=== PATIENT | female | born 1985 | race Caucasian/White ===

== ENCOUNTER 2016-02-23 07:51 | Day surgery (SDC) | payer OTHER ==
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
[~2016-02-23 07:51] MED LIST: CEFAZOLIN SODIUM 2 GRAM DUPLEX 50 ML IV PRN; IV START KIT ONE; LACTATED RINGERS 0 ML ONE
[2016-02-23] MEDS ORDERED: LACTATED RINGERS 1,000 ML ONE (07:58)
[2016-02-23] MEDS ORDERED: IV START KIT ONE (07:58)
[2016-02-23] MEDS ORDERED: ROPIVACAINE 0.5% 30 ML VIAL ONE (08:13)
[2016-02-23] MEDS ORDERED: NERVE BLOCK PROCEDURAL TRAY 1 EACH ONE (08:13)
[2016-02-23] MEDS ORDERED: MIDAZOLAM HCL 1 MG/ML 2ML VIAL ONE ×2 (08:40→09:18)
[2016-02-23] MEDS ORDERED: FENTANYL 100 MCG/2 ML VIAL ONE ×2 (08:40→09:18)
[2016-02-23] MEDS ORDERED: SPINAL PROCEDURAL TRAY 1 EACH ONE (08:59)
[2016-02-23] MEDS ORDERED: PROPOFOL 40 ML IV ONE (09:18)
[2016-02-23] MEDS ORDERED: LIDOCAINE 2% (PRES FREE) 5 ML VIAL ONE (10:05)
[2016-02-23] MEDS ORDERED: MORPHINE SULFATE 4 MG/ML SYRINGE IV PRN (10:49)
[2016-02-23] MEDS ORDERED: ONDANSETRON 4 MG/2ML 2 ML VIAL IV PRN ×2 (10:49→12:59)
[2016-02-23] MEDS ORDERED: PROMETHAZINE HCL 25 MG/ML VIAL IM PRN (10:49)
[2016-02-23] MEDS ORDERED: FENTANYL 100 MCG/2 ML VIAL IV PRN (10:49)
[2016-02-23] MEDS ORDERED: LACTATED RINGERS 1,000 ML IV SCH ×2 (11:00→12:59)
[2016-02-23] MEDS ORDERED: PROPOFOL 20 ML IV ONE (11:18)
[2016-02-23] MEDS ORDERED: DEXAMETHASONE SOD PHOS 4 MG/1 ML VIAL ONE (11:20)
[2016-02-23] MEDS ORDERED: MINERAL OIL 25 ML BOT ONE (11:28)
--- NOTE | 2016-02-23 12:10 | PCMBPN ---
Brief Post Op Note: Date of Procedure: 02/23/16 Start Time: 1030 Preoperative Diagnosis: 1. left knee ACL disruption 2. lateral mensicus tear Postoperative Diagnosis: 1. Same Procedure: left knee arthroscopy with lateral meniscus repair and ACL reconstruction using hamstring autograft Surgeon: Beck Mcgee MD Assist: Alysha Pierre Anesthesia: Jason Smith (spinal) Findings: as above Condition: stable to PACU Complications: none IV Fluids: 1000 mLs of LR Urine Output: 0 mLs Estimated Blood Loss: 25 mLs Tourniquet Time: 95 min at 250 mm Hg Specimens: none Implants: Mitek Rigidloop, 8x30 mm Biointrafix Drains: none Beck Mcgee MD
[2016-02-23] MEDS ORDERED: ON-Q PUMP/ROPIVACAINE 0.2% 400 ML in PREMIX BAG 1 EACH NB PRN (12:17)
[2016-02-23] MEDS ORDERED: ON-Q PUMP/ROPIVACAINE 0.2% 0 ML ONE (12:23)
--- NOTE | 2016-02-23 12:47 | RAD ---
Exam: Two-view left knee COMPARISON: 02/10/2016 INDICATION: Postop left knee ACL reconstruction. FINDINGS: AP and crosstable lateral views of the left knee were obtained. Postsurgical changes compatible with recent ACL reconstruction are appreciated. Alignment is normal. No unexpected fracture is identified. Joint spaces are maintained. IMPRESSION: Expected postoperative appearance following ACL reconstruction and the left knee.
[2016-02-23] MEDS ORDERED: DIPHENHYDRAMINE HCL 50 MG/1 ML VIAL IV PRN (12:59)
[2016-02-23] MEDS ORDERED: OXYCODONE/ACETAMINOPHEN 5/325 MG TABLET PO PRN (12:59)
[2016-02-23] MEDS ORDERED: HYDROMORPHONE HCL 1 MG/ML SYRINGE IV PRN (12:59)
[2016-02-23] MEDS ORDERED: ACETAMINOPHEN 325 MG TABLET PO PRN (12:59)
[2016-02-23] MEDS ORDERED: OXYCODONE/ACETAMINOPHEN 5/325 MG TABLET ONE (13:48)
--- NOTE | 2016-02-24 08:46 | OP ---
KIRAN GRIFFITH : 1985 V [id number] DATE OF PROCEDURE: February 23, 2016 PREOPERATIVE DIAGNOSIS: Left knee ACL disruption and lateral meniscus tear. POSTOPERATIVE DIAGNOSES: SAME PROCEDURE PERFORMED: LEFT KNEE ARTHROSCOPY WITH LATERAL MENISCUS REPAIR AND ACL RECONSTRUCTION USING HAMSTRING AUTOGRAFT SURGEON: Beck Mcgee M.D. PROFESSOR OF BUSINESS ADMINISTRATION: Alysha Pierre ANESTHESIA: Spinal per Jason Smith SPECIMENS: None ESTIMATED BLOOD LOSS: 25 mL FLUIDS REPLACED: 1000 mL of crystalloid. TOURNIQUET TIME: 95 minutes at 250 mmHg. IMPLANTS: Mitek Rigid Loop for the femur and Mitek IntraFix for the tibia with hamstring autograft. DRAINS: No drains. INDICATIONS: This is a 30-year-old female with history, physical exam and radiographic findings consistent with an ACL disruption of their left knee. In order to allow the patient to return to their desired level of activity they were counseled that we recommended an ACL reconstruction. The risks, benefits and alternatives were discussed with the patient and they agreed to proceed with surgery. Informed consent was obtained and documented in the chart. DESCRIPTION OF PROCEDURE: The patient was identified in the preoperative holding area where they were marked with an indelible marker by the operating surgeon. An adductor canal block was administered by the anesthesia provider. The patient was then taken to the operating room where they were placed in the supine position on the operating room table. General anesthesia was induced. Perioperative antibiotics were administered. A well padded pre-calibrated nonsterile tourniquet was placed on the left upper thigh. The patient was then prepped and draped in the usual sterile fashion for surgery. An operative time out was performed and confirmed by all members of the operative team. The leg was elevated and exsanguinated using an Esmarch bandage and the tourniquet was inflated to 250 mmHg. A standard lateral portal was created and the 30 degree viewing arthroscope was inserted in the knee. Optics were directed anteromedially and a medial portal was localized with a spinal needle and created in a standard fashion. A probe was inserted through the medial portal and used in completion of diagnostic arthroscopy with the following findings: The lateral meniscus had a Bucket-Handle style tear but not large enough that the fragment was actually displaced all the way into the joint. This was very peripheral in the red-red zone and was amenable to repair. The medial meniscus was intact. The ACL was avulsed from the femur, the PCL was intact, the chondral surfaces of the medial femoral condyle, medial tibial plateau, lateral femoral condyle, lateral tibial plateau, patellar facets and trochlea were all intact. There was a moderate amount of hypertrophy of the anterior fat pad. After completion of diagnostic arthroscopy the probe was exchanged for an arthroscopic biter which was used to resect the residual ACL. This was exchanged for an arthroscopic resector shaver which was used to complete resection of the ACL and to prepare the bed for a graft on the tibia and femoral insertions. Next, the camera was pushed to the medial portal and a femoral guide for the ACL set to 105 degrees was brought in through the lateral portal. This was localized to the anatomic footprint of the ACL on the lateral wall of the notch and a guide pin was driven in through a stab incision on the lateral side of the thigh entering the knee in the appropriate position of the notch. The sleeve for the FlipCutter was then pounded down over the guide pin. The guide pin was exchanged for a 7.5 mm FlipCutter which was deployed within the knee and drawn back to create a 25 mm deep femoral tunnel. We confirmed a good posterior wall on the tunnel. A suture was passed through the tunnel and tagged for later used in drawing the femoral fixation hardware through the knee. Cameras were switched again to the lateral portal and a tibial guide was brought in through the medial portal. Position of the tibial tunnel was localized just in front of the PCL on the medial shelf of the intercondylar spines and at the posterior border of the anterior horn of the lateral meniscus. A stab incision was made on the front of the leg and a guide pin was driven up into the knee entering through the appropriate position. This was reamed over with a size 7.5 mm [place] reamer to create our tibial tunnel. All of the debris from the tunnels was then evacuated out of the knee and the leading sutures were passed out through the tibial tunnel. The anterior tibialis graft which had been prepared on the back table was brought onto the field and the leading sutures of the Mitek RigidLoop device were passed through the knee using the passing suture under arthroscopic visualization. The button was observed to pass through the knee and to deploy on the lateral surface of the distal femur. The graft was arthroscopically visualized as it passed through the knee and docked well into the socket of the femur. Tension was held on the tails of the graft while the knee was cycled 30 times and then the tibial tunnel was dilated. The sleeve for the IntraFix device was placed and the screw for tibial fixation was placed. This was all done with a posterior drawer applied to the knee while in a 30 degree flexed position with the foot resting on a Liao stand and tension on the graft limbs. At this point an examination under anesthesia demonstrated a stable knee both rotationally and translationally with a negative Alexys. The excess graft was cut off and the sutures were cut off from the femoral button. All incision sites were closed with 4-0 Nylon. A sterile dressing of Xeroform, fluffs, ABDs, web roll and an FAISAL bandage was applied. The patient was placed into a drop lock knee brace locked in extension and set to 0 to 60 when unlocked. The tourniquet was deflated, the drapes were removed. The patient was awakened from anesthesia and transferred to a stretcher and taken postoperatively to the post anesthesia care unit in stable condition. There were no observed intraoperative complications during this procedure. DORIAN/cuauhtemoc CC: [facility]
== END 2016-02-23 16:59 | disposition home or self-care (01) ==
LOC: SDC 07:51
PROVIDERS: ATTEND Orthopaedic Surgery
PROC: 0SBD4ZZ Excision of Left Knee Joint, Percutaneous Endoscopic Approach (ICD-10-PCS; principal; 2016-02-23)
PROC: 0SUD47Z Supplement Left Knee Joint with Autologous Tissue Substitute, Percutaneous Endoscopic Approach (ICD-10-PCS; principal; 2016-02-23)
DX: S83.512A Sprain of anterior cruciate ligament of left knee, initial encounter (principal); S83.252A Bucket-handle tear of lateral meniscus, current injury, left knee, initial encounter; X50.0XXA Overexertion from strenuous movement or load, initial encounter; Y93.02 Activity, running
CPT/HCPCS: 73560; 29888; 29881; J3010 ×3; J1100; J0690; J2795; A9270 ×2; J2250 ×2; J2405; J7120